=== PATIENT | male | born 1995 | race Two or more races ===

== ENCOUNTER 2024-08-29 19:47 | Emergency (ER) | payer MEDICAID, SELFPAY ==
[2024-08-29 19:49] VITALS: BMI 28.5
[2024-08-29 20:33] VITALS: BP 129/79; PULSE 81; RESP 18; TEMP 37; O2SAT 98
--- NOTE | 2024-08-29 20:44 | XR_ITS ---
EXAMINATION: Ankle, right 3 views . Technique: Ankle AP, oblique, lateral 3 views Date and time of exam: August 29, 2024 at 2057 hrs. Indications: Patient fell today with into the ankle, ankle pain. Findings: Ankle subluxation, distal articulating surface of the tibia displaced medially at least 3.5 mm Fracture at the posterior malleolus on the lateral view No foreign body Impression: Mild lateral subluxation Posterior malleolar fracture
--- NOTE | 2024-08-29 20:45 | PD.EDRME ---
Rapid Medical Screening Exam RME Arrival date/time: 08/29/24 19:47 29 year old male present to ED for c/o of right ankle injury today I have greeted and performed a focused initial assessment of this patient. A comprehensive ED assessment and evaluation of the patient, analysis of all test results, and completion of the medical decision making process will be conducted by additional ED providers. Chief Complaint: Ankle/Foot Injury Time Seen by Provider: 08/29/24 19:58 Vital signs: Vital Signs Temperature 98.6 F 08/29/24 20:33 Pulse Rate 81 08/29/24 20:33 Respiratory Rate 18 08/29/24 20:33 Blood Pressure 129/79 08/29/24 20:33 Pulse Oximetry (%) 98 08/29/24 20:33 Oxygen Delivery Method Room Air 08/29/24 20:33
--- NOTE | 2024-08-29 23:43 | EDNOTE_ITS ---
Lower Extremity Injury RME/HPI General Chief Complaint: Ankle/Foot Injury Stated Complaint: RIGHT ANKLE INJURY Time Seen by Provider: 08/29/24 19:58 Arrival date/time: 08/29/24 19:47 29 year old male present to emergency room with c/o right ankle injury today. LOCATION: ankle SEVERITY: Symptoms are described as being severe with limitations on activities of daily living QUALITY: Symptoms are described as being dull or achy CONTEXT: [started at time of trauma] DURATION/TIMING: The symptoms started approximately 1 day ago and have been constant this then. ASSOCIATED SYMPTOMS: The patient is unable to identify any other associated symptoms. MODIFYING FACTORS: The patient is unable to identify any alleviating or aggravating symptoms. PERTINENT ROS: no fevers, no headache, no neck or chest pain, no unexplained nausea or vomiting, no focal neurological deficits REVIEW OF SYSTEMS: See History of Present Illness - with the exception of those mentioned in the history of present illness, all other systems reviewed and reported as negative GENERAL: In general the patient is awake, interactive, in an emergency department gurney. HEAD/EYES/EARS/NOSE/THROAT: normo-cephalic, atraumatic, mucus membranes are moist, anicteric, palpebral conjunctiva is pink, trachea is midline. CARDIOVASCULAR: regular rate and regular rhythm, no murmurs, heart sounds are not distant, strong pulses in all four extremities that are equal and symmetric bilateral upper and lower extremities, normal capillary refill. CHEST/PULMONARY: normal chest rise and fall, good air movement, clear to auscultation bilaterally, normal inspiratory to expiratory ratios without evidence of respiratory distress. NECK: No midline/Paraspinal tenderness, no step off ROM/Strenght intact No Kernig and bruzinski sign. No trauma ABDOMEN: soft, not tender, no masses appreciated BACK: normal range of motion without pain. NEUROLOGICAL: cranio-facial features are symmetric, moves all four extremities equally without obvious limitations or weakness. EXTREMITY: Right lower ankle tenderness, + swelling, no tenderness to palpation over the long bones or large joints of the bilateral upper no joint swelling, , no unilateral leg swelling and no peripheral edema. SKIN: warm, dry, well-perfused, no jaundice, no rash, no telangiectasias or petechia. PSYCH: calm, cooperative, no evidence of psychosis or agitation RME / HPI RME / HPI Narrative: 08/29/24 19:47 29 year old male present to ED for c/o of right ankle injury today I have greeted and performed a focused initial assessment of this patient. A comprehensive ED assessment and evaluation of the patient, analysis of all test results, and completion of the medical decision making process will be conducted by additional ED providers. Related Data Previous Rx's ?Medication ?Instructions ?Recorded ibuprofen 800 mg tablet (IBU) 800 mg PO TID PRN pain #30 tabs 08/29/24 Allergies Allergy/AdvReac Type Severity Reaction Status Date / Time No Known Allergies Allergy Verified 08/29/24 19:50 Course Course Course Narrative: xray to rule out fracture spoke with Dr. Silveira follow up with ortho aug 3pm crutches/splint (posterior splint) CD given Quality Measures none Orders Category Date Time Status Crutches .NOW Care 08/29/24 23:42 Active Splint / Immobilizer STAT Care 08/29/24 23:42 Active XR ankle comp RT min 3V Stat Exams 08/29/24 20:44 Completed Ibuprofen Tab [Motrin Tab] Med 08/29/24 23:51 Discontinued 800 mg PO X1 ONE oxyCODONE/APAP 5/325 [Percocet 5/325] Med 08/29/24 23:51 Discontinued 1 tab PO X1 ONE Vital Signs Vital signs: Vital Signs Temperature 98.6 F 08/29/24 20:33 Pulse Rate 81 08/29/24 20:33 Respiratory Rate 18 08/29/24 20:33 Blood Pressure 129/79 08/29/24 20:33 Pulse Oximetry (%) 98 08/29/24 20:33 Oxygen Delivery Method Room Air 08/29/24 20:33 Extremity Injury, Lower Patient data External records reviewed:: None Clinical information provided by:: patient Social determinants that could affect healthcare access:: none Patient has the following chronic illnesses:: none How is presenting disease/condition affected by chronic disease/condition?: no chronic disease Evaluation data The following diagnostics were reviewed and interpreted by me:: radiology exam(s) Lab and/or radiology exams considered but not ordered:: none Interpretation Summary: xray: Ankle subluxation, distal articulating surface of the tibia displaced medially at least 3.5 mm Fracture at the posterior malleolus on the lateral view No foreign body ? Impression: ? Mild lateral subluxation ? Posterior malleolar fracture Medications / Prescriptions Medications or Prescriptions considered but not ordered:: none Medication administrations:: Medication Administration History Discontinued Medications Ibuprofen (Ibuprofen Tab 400 Mg Tablet) 800 mg PO X1 ONE Stop: 08/29/24 23:52 Oxycodone/Acetaminophen (Oxycodone/Apap 5/325 Tablet) 1 tab PO X1 ONE Stop: 08/29/24 23:52 as stated above Consultations Consultation(s) initiated? (list below): No Diagnosis Most likely diagnosis given after review of the tests above:: ankle fracture Admission Indicated Admission indicated?: not indicated Admission Request Was there a request for admission?: No Disposition Plan Disposition Plan: Discharge Discharge Attestation Discharge Attestation: The patient and all family members were given an opportunity to ask questions and understood the discharge instructions. Discharge instructions specifically effects, indications for sooner follow up or return to the emergency department, and the expected course of current diagnosis. Patient condition: Stable Discharge Plan Plan Patient Disposition: HOME (Self Care) Health Concerns: Tienes brenda hussein con el Dr. Silveira el 2023 a las 15:00 horas. Utilice muletas y evite cargar peso. tome tylenol o motrin seg?n sea necesario para el dolor. Prescriptions/Referrals Prescriptions/Med Rec: New ibuprofen [IBU] 800 mg tablet 800 mg PO TID PRN (Reason: pain) Qty: 30 0RF Referrals: No Primary/Family,Physician [Primary Care Provider] - In 1 week Price Silveira MD [Physician] - 09/02/24 3:00 pm Problem List Clinical Impression: Ankle fracture Patient/Caregiver Discharge Instructions Education Materials: ED Fracture, Lower Extremity Print Language: Palestinian Stand Alone Forms: Giana Award Info., Patient Portal Info Letter
[2024-08-30] MEDS: IBUPROFEN TAB 400 MG TABLET 800 MG PO (00:18)
[2024-08-30] MEDS: oxyCODONE/APAP 5/325 TABLET 1 TAB PO (00:19)
[2024-08-30 00:29] VITALS: BP 127/62; PULSE 67; RESP 19; TEMP 36.7; O2SAT 99
== END 2024-08-30 00:29 | disposition home or self-care (01) ==
PROVIDERS: Emergency Provider Emergency Medicine
DX: S82.61XA Displaced fracture of lateral malleolus of right fibula, initial encounter for closed fracture (principal); W19.XXXA Unspecified fall, initial encounter
CPT/HCPCS: 29515; 73610; 99283; A9270

== ENCOUNTER 2024-09-06 06:10 | Day surgery (SDC) | payer MEDICAID, SELFPAY ==
[2024-09-05 11:02] VITALS: BMI 29.2
[2024-09-05 11:37] LABS: Basophils # (Auto) 0.1 Thou/mm3 (0.0-0.2); Basophils % (Auto) 1 % (0-2.5); Eosinophils # (Auto) 0.1 Thou/mm3 (0.0-0.5); Eosinophils % (Auto) 2 % (0-10); Hematocrit 44.5 % (41.0-53.0); Hemoglobin 15.2 g/dL (13.5-16.0); Immature Granulocytes % (Auto) 0 % (0-0); Immature Granulocytes Auto 0.02 Thou/mm3 (0.00-0.00); Lymphocytes # (Auto) 1.6 Thou/mm3 (1.0-4.8); Lymphocytes % (Auto) 22 % (10-50); Mean Corpuscular HGB Conc 34.2 g/dl (31.0-37.0); Mean Corpuscular Hemoglobin 31.9 pg (25.0-35.0); Mean Corpuscular Volume 94 fL (80-100); Monocytes # (Auto) 0.6 Thou/mm3 (0.0-0.8); Monocytes % (Auto) 9 % (0-12); Neutrophils # (Auto) 4.9 Thou/mm3 (1.8-7.7); Neutrophils % (Auto) 67 % (37-80); Nucleated Red Blood Cell % 0 /100 WBC (0); Platelet Count 312 Thou/mm3 (140-440); RDW Standard Deviation 42.3 fL (35.1-43.9); Red Blood Count 4.76 Miln/mm3 (4.50-5.90); White Blood Count 7.3 Thou/mm3 (3.8-10.6)
[2024-09-05 11:52] LABS: Anion Gap 8 (7-16); BUN/Creatinine Ratio 15 Ratio (12-20); Blood Urea Nitrogen 17 mg/dL (9-23); Calcium 10.1 mg/dL (8.3-10.6); Carbon Dioxide 29.6 mMol/L (20.0-31.0); Chloride 102 mMol/L (98-107); Creatinine (Component) 1.1 mg/dL (0.6-1.3); Estimated Creatinine Clearance 114.6 mL/min (>60); Glucose 111 mg/dL (74-106); Osmolality,Calculated 281 (275-295); Potassium 4.7 mMol/L (3.4-5.1); Sodium 140 mMol/L (136-145); eGFR > 60 See Note
--- NOTE | 2024-09-05 15:06 | SUR.PREOP ---
Pt notified to come in tomorrow at 0630.
[2024-09-06] VITALS (9 sets, daily range): BP systolic 114–143; BP diastolic 67–89; PULSE 59–74; RESP 12–17; TEMP 36.1–36.6; O2SAT 97–100; BMI 28.0
--- NOTE | 2024-09-06 07:30 | CHAP ---
Patient expressed gratitude for prayer before their procedure.
--- NOTE | 2024-09-06 08:30 | XR_ITS ---
Examination: Right ankle 5 views Fluoroscopy Exam date and time: September 06, 2024 10:00 AM INDICATIONS: Ankle subluxation posterior malleolar fracture August 29, 2024 postop reduction ankle dislocation Technique and findings: 5 spot fluoroscopic films lower leg Fluoroscopy 26 seconds radiation dose 0.79 milligray Orthopedic screws traverse distal tibia and distal fibula Satisfactory alignment at the tibiotalar joint IMPRESSION: Satisfactory alignment at the tibiotalar joint
--- NOTE | 2024-09-06 09:14 | XR_ITS ---
Examination: Right ankle 2 views Technique one AP lateral right ankle 2 views Exam date and time: September 06, 2024 0940 hours Comparison August 29, 2024 INDICATIONS: Postop reduction ankle fractures dislocation FINDINGS: Orthopedic screws traverse the distal tibia fibula Satisfactory alignment distal articulating surface tibia relative to the dome the talus Posterior malleolar fracture with no significant offset IMPRESSION: Satisfactory alignment tibiotalar joint
--- NOTE | 2024-09-06 09:15 | SUR.PHASEI ---
0915: Pt. arrived with oral airway in place, vitals stable, breathing unlabored, no signs of distress, dressing to right ankle CDI, no active bleed noted, bilateral popliteal pulses strong and regular, cap refill to bilateral feet less than 3 seconds, report received from Celia JUÁREZ and Chery THOMASON.
--- NOTE | 2024-09-06 09:19 | ESOP_ITS ---
Date of Procedure 09/06/24 Pre Op Diagnosis Wide ankle mortise right ankle. Posterior malleolar fracture Upper fibular fracture Post Op Diagnosis Same Procedure Placement of 2 syndesmosis screw Findings Refer dictation Procedure Description Patient was given general endotracheal anesthesia. Was satisfactory anesthesia achieved a tourniquet was placed on right upper thigh. Following that part was thoroughly prepped and draped. After using Esmarch the tourniquet pressure was raised to 350 mmHg. Intravenous antibiotics was given at the time of anesthesia Patient has almost undisplaced fracture of the part of fibula hence a decision was made not to fix it. The posterior malleolar fracture was only about 15% of the articular surface and was well aligned hence a decision was made not to fix that too. However the syndesmosis was wide hence syndesmosis screw was placed A gentle stab incision was made under C-arm guidance just proximal to the distal end of the fibula. Following that with the help of 2.8 drill the drilling was done through the fibula into the tibia. Following that 4 mm diameter and 50 mm long partially-threaded cancellous screw was placed. The ankle mortise was very well reduced. Following that another screw was placed in similar fashion. Wound was irrigated with antibiotic solution Closure of the soft tissue was done with 2-0 Vicryl and the skin was closed with a peng Out 10 mL of quarter percent Marcaine was injected at the skin incision site After cleaning the wound with hydrogen peroxide solution a sterile dressing was applied and tourniquet pressure was released Patient tolerated procedure well. Estimated blood loss 2 mL Further management. Patient is advised not to be weightbearing at at all for next 6 to 8 weeks. The syndesmosis screw will be taken out at that time and then he will be allowed to be full weight-bear or partial weight-bear as the case may be. Anesthesia GETA Pathology / specimen None Estimated Blood Loss 2 Surgeon Price Silveira MD Surgical Staff Operation Date: 09/06/24 08:30 Case Staff ASSISTANT PROFESSOR OF ARCHAEOLOGY: Landon Johnson RNblast furnace operator: Sarah Germain
[2024-09-06] MEDS: fentaNYL CIT INJ 50 mCg/ML AMP 2ML IV (09:32)
[2024-09-06] MEDS: CYCLObenzaPRINE 5 MG TABLET 10 MG PO (09:49)
[2024-09-06] MEDS: oxyCODONE HCL 5 MG IR TAB PO (09:49)
[2024-09-06] MEDS: ACETAMINOPHEN IVPB 1,000 MG/100 ML VIAL 250 MG IV (09:59)
--- NOTE | 2024-09-06 10:32 | SUR.PHASEII ---
1032: Pt. AAOx4, vitals stable, breathing unlabored, no complaint of pain or nausea, dressing to right ankle CDI, no active bleed noted, pt. able to wiggle bilateral toes, cap refill to bilateral feet less than 3 seconds, bilateral popliteal pulses strong and regualr, pt. tolerated sips of water well, pt. ambulated to wheelchair with assist from crutches, steady gait and tolerated transfer well. Gave discharge instructions to the pt. and his ride, both verbalized understanding and had no further quesitons. Pt. left with all personal belongings.
--- NOTE | 2024-09-06 10:42 | ESHP_ITS ---
RE: BEKA GRAY : 1995 DATE OF ADMISSION: 09/06/2024 HISTORY OF PRESENT ILLNESS: The patient presented to me on 09/02/2024 with history of injury to the right ankle. The patient stated that he stepped in a hole and twisted his right ankle. The patient noticed immediate pain and swelling. The patient went to the emergency room and x-ray of the right ankle was obtained. It revealed fracture of the posterior malleolus with wide ankle mortise. The patient was explained the diagnosis. The patient was also explained that he needs surgical fixation and two syndesmosis screws will be placed. Detailed discussion took place about the procedure with alpha pixels diagram and the patient wanted to proceed. PAST MEDICAL HISTORY: No history of diabetes mellitus, high blood pressure, asthma, or seizures. PAST SURGICAL HISTORY: Nil. FAMILY HISTORY AND SOCIAL HISTORY: The patient denies smoking, admits social drinking and is . PHYSICAL EXAMINATION: GENERAL: Normal built with person. VITAL SIGNS: Pulse 92 per minute, blood pressure 130/76. NECK: Soft. Supple. No masses felt. Trachea is centrally placed. CARDIOVASCULAR SYSTEM: First and second heart sound normal. No murmur heard. ABDOMEN: Soft. Supple. No masses felt. Bowel sounds present. EXTREMITIES: Right ankle examination revealed swelling. There is ecchymosis and bruise. Dorsalis pedis artery is palpable. IMAGING: X-ray revealed posterior malleolar fracture and wide ankle mortise. ASSESSMENT AND PLAN: Diagnosis and prognosis was explained. As stated earlier, detailed discussion took place. I also explained that I will obtain an x-ray of the proximal fibula as well as it seems it may be broken, but that needs not to be fixed. Risks with anesthesia was explained and that includes, but not limited to reaction to anesthetic agents, cardiac arrest, or rarely it might be fatal. The risks with operation includes infection and if that happens, the patient may need further surgical procedure. Some type of rare risk happens that includes deep venous thrombosis, pulmonary emboli, which rarely might be fatal. I also explained that he should be absolutely nonweightbearing on the right lower limb until I go back in 6-8 weeks' time and take off the syndesmosis screw and the patient is fully aware of that. Accordingly, surgery is booked for 09/06/2024. Appropriate lab work is done. DT: 09:32:19 TT: 10:41:00 Ref: [id number] - TID: [id number]
== END 2024-09-06 10:32 | disposition home or self-care (01) ==
PROVIDERS: PCP Family Medicine; Referring Provider Orthopaedic Surgery; Visit Provider Orthopaedic Surgery
PROC: (CPT 27829; principal; 2024-09-06 08:30)
DX: S82.51XA Displaced fracture of medial malleolus of right tibia, initial encounter for closed fracture (principal)
CPT/HCPCS: 27829; 36415; 73600; 76000; 80048; 85025; A4217; A4649; C1713; J0131; J0690; J1580; J2250; J2405; J2704; J2765; J3010; J3490; A9270; J0665; J1596

== ENCOUNTER → 2024-10-17 | Outpatient (CLI) | payer MEDICAID, SELFPAY ==
--- NOTE | 2024-10-17 14:02 | XR_ITS ---
EXAMINATION: Ankle, right 3 views . Technique: Ankle AP, oblique, lateral 3 views Date and time of exam: October 17, 2024 1308 hrs. Comparison September 06, 2024 Indications: History ankle fracture or dislocation Findings: No acute fracture No ankle dislocation Orthopedic screws traverse distal fibula tibia Impression: No acute fractures No ankle dislocation
== END | disposition home or self-care (01) ==
PROVIDERS: PCP Internal Medicine; Referring Provider Orthopaedic Surgery; Visit Provider Orthopaedic Surgery
DX: Z98.890 Other specified postprocedural states (principal); Z87.81 Personal history of (healed) traumatic fracture
CPT/HCPCS: 73610

== ENCOUNTER 2024-10-25 13:00 | Day surgery (SDC) | payer MEDICAID, SELFPAY ==
[2024-10-24 11:25] VITALS: BMI 27.6
[2024-10-24 12:26] LABS: Basophils # (Auto) 0.1 Thou/mm3 (0.0-0.2); Basophils % (Auto) 1 % (0-2.5); Eosinophils # (Auto) 0.1 Thou/mm3 (0.0-0.5); Eosinophils % (Auto) 2 % (0-10); Hematocrit 44.9 % (41.0-53.0); Hemoglobin 15.4 g/dL (13.5-16.0); Immature Granulocytes % (Auto) 0 % (0-0); Immature Granulocytes Auto 0.01 Thou/mm3 (0.00-0.00); Lymphocytes # (Auto) 1.7 Thou/mm3 (1.0-4.8); Lymphocytes % (Auto) 28 % (10-50); Mean Corpuscular HGB Conc 34.3 g/dl (31.0-37.0); Mean Corpuscular Hemoglobin 31.2 pg (25.0-35.0); Mean Corpuscular Volume 91 fL (80-100); Monocytes # (Auto) 0.5 Thou/mm3 (0.0-0.8); Monocytes % (Auto) 9 % (0-12); Neutrophils # (Auto) 3.7 Thou/mm3 (1.8-7.7); Neutrophils % (Auto) 61 % (37-80); Nucleated Red Blood Cell % 0 /100 WBC (0); Platelet Count 308 Thou/mm3 (140-440); RDW Standard Deviation 40.6 fL (35.1-43.9); Red Blood Count 4.94 Miln/mm3 (4.50-5.90); White Blood Count 6.1 Thou/mm3 (3.8-10.6)
--- NOTE | 2024-10-24 12:31 | ESHP_ITS ---
RE: BEKA GRAY : 1995 DATE OF ADMISSION: 10/24/2024 HISTORY OF PRESENT ILLNESS: The patient came to my office on 10/24/2024 for detailed preop history and physical examination expressed present complaint. The patient is status post ORIF of the right ankle. Two syndesmosis screws were placed more than 6 weeks back. The x-ray was obtained recently, which revealed very good alignment. The patient needs syndesmosis screws to be taken off. PAST MEDICAL HISTORY: No history of diabetes mellitus, high blood pressure, asthma, seizure, or chest pain. PAST SURGICAL HISTORY: Status post ORIF of the right ankle with 2 syndesmosis screws done on 09/06/2024. DRUG HISTORY: Pain medication. ALLERGIES: NIL KNOWN. FAMILY HISTORY AND SOCIAL HISTORY: Noncontributory. PHYSICAL EXAMINATION: GENERAL: Normal-built person. VITAL SIGNS: Pulse 88 per minute, blood pressure is 120/76. NECK: Soft, supple. No mass felt. Tracheal centrally placed. CARDIOVASCULAR: First and second heart sounds normal. No murmur heard. RESPIRATORY SYSTEM: Bilateral vesicular breath sounds. CHEST: Clear. ABDOMEN: Soft. No mass felt. Bowel sounds present. EXTREMITIES: Right ankle revealed a scar fernanda over the lateral side. Range of motion is quite good. X-ray revealed very good alignment. PLAN: The patient was advised for the removal of the syndesmosis screw, so that he can put full weight on it. Risks with anesthesia were explained and that includes, but not limited to reaction to anesthetic agents, cardiac arrest, and rarely, it might be fatal. Risk operation includes infection and if that happens, the patient may need further surgical procedure. Other risks include delayed healing, wound dehiscence, etc. No guarantee is given regarding the outcome of the procedure and relief of symptoms. The patient wanted to proceed with surgery. Surgery booked for 10/25/2024. Appropriate lab work was done. DT: 11:54:57 TT: 12:29:00 Ref: [id number] - TID: [id number]
[2024-10-24 12:53] LABS: Anion Gap 12 (7-16); BUN/Creatinine Ratio 10 Ratio (12-20); Blood Urea Nitrogen 11 mg/dL (9-23); Calcium 10.4 mg/dL (8.3-10.6); Carbon Dioxide 27.3 mMol/L (20.0-31.0); Chloride 101 mMol/L (98-107); Creatinine (Component) 1.1 mg/dL (0.6-1.3); Estimated Creatinine Clearance 103.6 mL/min (>60); Glucose 115 mg/dL (74-106); Osmolality,Calculated 279 (275-295); Potassium 4.1 mMol/L (3.4-5.1); Sodium 140 mMol/L (136-145); eGFR > 60 See Note
[2024-10-25] VITALS (8 sets, daily range): BP systolic 103–133; BP diastolic 53–87; PULSE 57–70; RESP 13–18; TEMP 36.4–37.4; O2SAT 98–100; BMI 27.1
[2024-10-25] MEDS: RINGERS LACTATED 1000 ML 1,000 ML 20 ML IV (13:43)
--- NOTE | 2024-10-25 16:38 | SUR.PHASEI ---
pt received to [facility]. oral airway in place. vss. breathing even and unlabored. ls clear. dressing to right ankle cdi. report from dr craven and nurse basil.
--- NOTE | 2024-10-25 16:38 | PD.SUROPNT ---
Date of Procedure 10/25/24 Pre Op Diagnosis Is status post syndesmosis screw right ankle Post Op Diagnosis Same Procedure Removal of 2 syndesmosis screws right Findings Refer dictation Procedure Description Patient was given general endotracheal anesthesia. Once satisfactory anesthesia achieved a tourniquet was placed right upper thigh. Following that part was thoroughly prepped and draped. After using Esmarch the tourniquet pressure was raised to 350 mmHg I skin incision was made over the previously placed eschar. It was extended proximally and distally by about half inches on each side. Deeper dissection was carried out. Care was taken not to damage any deeper structure or sural nerve or tendon The screw head was then located. The 2 screws were removed in sequence And was irrigated with antibiotic solution every 4 to 5 minutes The soft tissue was closed in layers with help of 2-0 Vicryl and the skin was closed with peng About 5 to 6 mL of quarter percent Marcaine was injected that the skin incision site patient tolerated procedure well. The wound was cleaned with hydrogen peroxide solution and a sterile dressing was applied and tourniquet pressure was released Patient tolerated procedure well. Estimated blood loss 1 mL. Patient will be nonweightbearing for about 2 weeks time and then will be doing home exercise. Anesthesia GETA Pathology / specimen None Estimated Blood Loss 1 Surgeon Price Silveira MD Surgical Staff Operation Date: 10/25/24 15:00 <No data on this case meets the specified criteria>
--- NOTE | 2024-10-25 16:43 | SUR.PHASEI ---
oral air way out by patient. pt awake and alert. denies pain and nausea. o2 removed by patient. vss. breathing even and unlabored.
--- NOTE | 2024-10-25 17:38 | SUR.PHASEII ---
pt discharged with all belongings via wheelchair. pt alert and oriented. vss. breathing even and unlabored on room air. ls clear. dressing remains cdi. good cms noted to all extremities. discharge instructions gone over with pt and . both verbalized understanding. signed by .
== END 2024-10-25 17:47 | disposition home or self-care (01) ==
PROVIDERS: PCP Family Medicine; Referring Provider Orthopaedic Surgery; Visit Provider Orthopaedic Surgery
PROC: (CPT 20680; principal; 2024-10-25 15:00)
DX: Z47.2 Encounter for removal of internal fixation device (principal); Z87.81 Personal history of (healed) traumatic fracture
CPT/HCPCS: 20680; 36415; 80048; 85025; A4217; J1100; J1885; J2250; J2405; J2704; J3010; J3490; J7120

== ENCOUNTER → 2025-01-15 | Outpatient (CLI) | payer MEDICAID, SELFPAY ==
--- NOTE | 2025-01-15 10:39 | XR_ITS ---
EXAMINATION: Ankle, right 3 views . 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
== END | disposition home or self-care (01) ==
LOC: CDIM 10:28
PROVIDERS: Referring Provider Orthopaedic Surgery; Visit Provider Orthopaedic Surgery
DX: M19.071 Primary osteoarthritis, right ankle and foot (principal); Z98.890 Other specified postprocedural states
CPT/HCPCS: 73610